=== PATIENT | male | born 1965 | race Caucasian/White ===

== ENCOUNTER 2017-07-27 20:06 | Emergency (ER) | payer OTHER ==
[2017-07-27] MEDS: SODIUM CHLORIDE 0.9% FLUSH 10 ML FLUSH IV FLUSH (21:33)
[2017-07-27] MEDS: SODIUM CHLOR 0.9% 1000 ML INJ 1,000 ML IV (21:33)
[2017-07-27] MEDS: OSELTAMIVIR PHOSPHATE 75 MG CAP PO (21:33)
[2017-07-27] MEDS: ONDANSETRON HCL 4 MG/2 ML VIAL IV PUSH (21:33)
[2017-07-27 21:42] LABS: AUTOMATED NEUTROPHIL # 7.8 TH/MM3 (1.8-7.7); BASOPHIL % 0.2 % (0.0-2.0); EOSINOPHIL # 0.1 TH/MM3 (0-0.4); EOSINOPHIL % 0.8 % (0.0-4.0); HEMATOCRIT 45.1 % (39.0-51.0); HEMO FLAGS DIFF FINAL; HEMOGLOBIN 14.6 GM/DL (13.0-17.0); LYMPH % 10.8 % (9.0-44.0); MEAN CELL VOLUME 85.8 FL (80.0-100.0); MEAN CORPUSCULAR HEMOGLOBIN 27.7 PG (27.0-34.0); MEAN CORPUSCULAR HGB CONC 32.3 % (32.0-36.0); MEAN PLATELET VOLUME 6.9 FL (7.0-11.0); MONO % 6.7 % (0.0-8.0); MONOCYTE # 0.6 TH/MM3 (0-0.9); NEUT % 81.5 % (16.0-70.0); PLATELET COUNT 294 TH/MM3 (150-450); RED BLOOD COUNT 5.26 MIL/MM3 (4.50-5.90); RED CELL DISTRIBUTION WIDTH 12.9 % (11.6-17.2); WHITE BLOOD COUNT 9.5 TH/MM3 (4.0-11.0)
[2017-07-27] MEDS: RESP: ALBUTEROL 2.5 MG/3 ML NEB (SCH) INH (21:43)
[2017-07-27 21:49] LABS: CHLORIDE 103 MEQ/L (98-107); POTASSIUM 3.9 MEQ/L (3.5-5.1); SODIUM (NA) 138 MEQ/L (136-145)
[2017-07-27 21:52] LABS: CALCIUM 8.5 MG/DL (8.5-10.1)
[2017-07-27 21:53] LABS: ALBUMIN 3.8 GM/DL (3.4-5.0); ANION GAP 6 MEQ/L (5-15); BICARBONATE 29.2 MEQ/L (21.0-32.0); BLOOD UREA NITROGEN 19 MG/DL (7-18); GLUCOSE,RANDOM 133 MG/DL (74-106)
[2017-07-27 21:55] LABS: APTT (PATIENT) 28.9 SEC (24.3-30.1); INTERNATIONAL NORMALIZED RATIO 1.1 RATIO; PROTHROMBIN TIME - PATIENT 10.7 SEC (9.8-11.6)
[2017-07-27 21:56] LABS: ALT (GPT) 46 U/L (12-78); AST (GOT) 30 U/L (15-37); GLOMERULAR FILTRATION RATE 70 ML/MIN (>89)
[2017-07-27 21:58] LABS: TOTAL BILIRUBIN ADULT 0.4 MG/DL (0.2-1.0); TOTAL PROTEIN 7.7 GM/DL (6.4-8.2)
[2017-07-27 21:59] LABS: ALKALINE PHOSPHATASE 86 U/L (45-117)
== END 2017-07-27 23:17 | disposition home or self-care (01) ==
LOC: PHED 20:06
DX: J11.1 Influenza due to unidentified influenza virus with other respiratory manifestations (principal); R42 Dizziness and giddiness; I10 Essential (primary) hypertension; R94.31 Abnormal electrocardiogram [ECG] [EKG]; Z87.891 Personal history of nicotine dependence
CPT/HCPCS: 71045; 80053; 85025; 85610; 85730; 87804; 87804-59; 93005; 94664; 96361; 96374; 99285-25

== ENCOUNTER 2017-07-31 15:25 | Emergency (ER) | payer OTHER ==
[~2017-07-31] VITALS: Ht 180.3 cm; Wt 122.5 kg
[~2017-07-31 15:25] MED LIST: OSEL75 PO; VENTAER INH; ZOFR4TAB3 SL
[2017-07-31 15:57] VITALS: BP 178/103; PULSE 89; RESP 18; TEMP 98.1; O2SAT 98
[2017-07-31 17:00] VITALS: BP 159/94; PULSE 85; RESP 16; O2SAT 97
[2017-07-31] MEDS ORDERED: PROMETHAZINE INJ 25 MG/ML VIAL IM ONE (17:00)
[2017-07-31] MEDS ORDERED: SODIUM CHLOR 0.9% 1000 ML INJ 1,000 ML IV ONE ×2 (17:00→19:00)
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
[2017-07-31 17:30] LABS: AUTOMATED NEUTROPHIL # 7.2 TH/MM3 (1.8-7.7); BASOPHIL # 0.2 TH/MM3 (0-0.2); BASOPHIL % 2.2 % (0.0-2.0); EOSINOPHIL % 0.4 % (0.0-4.0); HEMATOCRIT 46.7 % (39.0-51.0); HEMOGLOBIN 15.7 GM/DL (13.0-17.0); LYMPH % 18.9 % (9.0-44.0); LYMPHOCYTE # 1.9 TH/MM3 (1.0-4.8); MEAN CORPUSCULAR HGB CONC 33.7 % (32.0-36.0); MEAN PLATELET VOLUME 6.7 FL (7.0-11.0); MONO % 6.2 % (0.0-8.0); MONOCYTE # 0.6 TH/MM3 (0-0.9); NEUT % 72.3 % (16.0-70.0); PLATELET COUNT 386 TH/MM3 (150-450); RED BLOOD COUNT 5.43 MIL/MM3 (4.50-5.90); WHITE BLOOD COUNT 9.9 TH/MM3 (4.0-11.0)
[2017-07-31] MEDS ORDERED: ZITHTAB PO (17:45)
[2017-07-31 17:49] LABS: CALCIUM 9.4 MG/DL (8.5-10.1)
[2017-07-31 17:50] LABS: BICARBONATE 28.3 MEQ/L (21.0-32.0)
[2017-07-31 17:53] LABS: CREATININE 1.2 MG/DL (0.60-1.30)
[2017-07-31 18:15] VITALS: BP 168/92; PULSE 90; RESP 16; O2SAT 96
[2017-07-31 19:13] VITALS: BP 157/96; PULSE 94; RESP 18; O2SAT 98
--- NOTE | 2017-07-31 19:44 | RADRPT ---
EXAM DATE/TIME: 07/31/2017 19:19 [facility] COMPARISON: No previous studies available for comparison. INDICATIONS : Nausea, vomitingm and dizziness for 5 days RADIATION DOSE: 58.52 CTDIvol (mGy) MEDICAL HISTORY : Hypertension. SURGICAL HISTORY : None. ENCOUNTER: Initial ACUITY: 4 - 6 days PAIN SCALE: 6/10 LOCATION: Bilateral cranial TECHNIQUE: Multiple contiguous axial images were obtained of the head. Using automated exposure control and adj ustment of the mA and/or kV according to patient size, radiation dose was kept as low as reasonably a chievable to obtain optimal diagnostic quality images. DICOM format image data is available electro nically for review and comparison. FINDINGS: CEREBRUM: The ventricles are normal for age. No evidence of midline shift, mass lesion, hemorrhage or acute in farction. No extra-axial fluid collections are seen. POSTERIOR FOSSA: The cerebellum and brainstem are intact. The 4th ventricle is midline. The cerebellopontine angle i s unremarkable. EXTRACRANIAL: The visualized portion of the orbits is intact. SKULL: The calvaria is intact. No evidence of skull fracture. CONCLUSION: 1. No acute intracranial abnormalities. Joo Dang MD on July 31, 2017 at 19:40 Board Certified Radiologist. This report was verified electronically.
[2017-07-31 20:21] VITALS: BP_SYST 151; BP_SYST 152; BP_SYST 156; BP_DIAS 100; BP_DIAS 87; BP_DIAS 89; RESP 16
[2017-07-31] MEDS ORDERED: PROM25TA10 PO (20:24)
--- NOTE | 2017-07-31 20:24 | PD ---
Physical Exam Date Seen by Provider: Jul 31, 2017 Time Seen by Provider: 19:00 Narrative Patient signed out to me at [address] Jorge, please see his notes for further details. Patient apparently has been having dizziness for several days , seen several days ago for similar symptoms, nauseous and intermittently vomiting, and came in for dizziness. No focal deficits identified on initial evaluation. Vital signs are stable. EKG shows NSR, no ST elevation or depression, and no arrhythmias. No significant T-wave inversions. Laboratory Tests Test 07/31/17 17:15 Mean Platelet Volume 6.7 FL (7.0-11.0) Neutrophils (%) (Auto) 72.3 % (16.0-70.0) Basophils (%) (Auto) 2.2 % (0.0-2.0) Blood Urea Nitrogen 19 MG/DL (7-18) Estimat Glomerular Filtration Rate 64 ML/MIN (>89) Last [address] 07/31/17 0000 Signed Impressions: Service Date/Time: Monday, July 31, 2017 19:19 - CONCLUSION: 1. No acute intracranial abnormalities. Joo Dang MD Lab work did not indicate significant metabolic issues or significant dehydration. CT of the brain was negative for any signs of acute intracranial processes. EKG did not show significant dysrhythmias. Patient has no significant focal neurological deficits on my evaluation is given IV fluids and was ambulatory in the ER without issues. Eating ice. He had no further vomiting episodes in the ER. Romberg testing was normal. At this point, I suspect he may have some underlying orthostasis likely secondary to mild dehydration. Planning to release with follow-up to primary care physician. Return for worsening in symptoms as necessary. Patient apparently was responding better to Phenergan and Zofran and I will give him Phenergan. Data Data Last Documented VS Vital Signs Date Time Temp Pulse Resp B/P (MAP) Pulse Ox O2 Delivery O2 Flow Rate FiO2 07/31/17 19:13 94 18 157/96 (116) 98 Room Air 07/31/17 15:57 98.1 Orders Orders Iv Access Insert/Monitor (07/31/17 16:57) Promethazine Inj (Phenergan Inj) (07/31/17 17:00) Sodium Chlor 0.9% 1000 Ml Inj (Ns 1000 M (07/31/17 17:00) Complete Blood Count With Diff (07/31/17 16:57) Basic Metabolic Panel (Bmp) (07/31/17 16:57) Ct Brain W/O Iv Contrast(Rout) (07/31/17 ) Electrocardiogram (07/31/17 ) Sodium Chlor 0.9% 1000 Ml Inj (Ns 1000 M (07/31/17 19:00) Orthostatic Vital Signs (07/31/17 18:53) Ed Discharge Order (07/31/17 20:20) Labs Laboratory Tests Test 07/31/17 17:15 White Blood Count 9.9 TH/MM3 Red Blood Count 5.43 MIL/MM3 Hemoglobin 15.7 GM/DL Hematocrit 46.7 % Mean Corpuscular Volume 86.0 FL Mean Corpuscular Hemoglobin 29.0 PG Mean Corpuscular Hemoglobin Concent 33.7 % Red Cell Distribution Width 13.0 % Platelet Count 386 TH/MM3 Mean Platelet Volume 6.7 FL Neutrophils (%) (Auto) 72.3 % Lymphocytes (%) (Auto) 18.9 % Monocytes (%) (Auto) 6.2 % Eosinophils (%) (Auto) 0.4 % Basophils (%) (Auto) 2.2 % Neutrophils # (Auto) 7.2 TH/MM3 Lymphocytes # (Auto) 1.9 TH/MM3 Monocytes # (Auto) 0.6 TH/MM3 Eosinophils # (Auto) 0.0 TH/MM3 Basophils # (Auto) 0.2 TH/MM3 CBC Comment DIFF FINAL Differential Comment Blood Urea Nitrogen 19 MG/DL Creatinine 1.20 MG/DL Random Glucose 102 MG/DL Calcium Level 9.4 MG/DL Sodium Level 138 MEQ/L Potassium Level 3.8 MEQ/L Chloride Level 102 MEQ/L Carbon Dioxide Level 28.3 MEQ/L Anion Gap 8 MEQ/L Estimat Glomerular Filtration Rate 64 ML/MIN [facility] Medical Record Reviewed: Yes Supervised Visit with RADHA: No Diagnosis Primary Impression: Nausea and vomiting Qualified Codes: R11.2 - Nausea with vomiting, unspecified Additional Impression: Lightheadedness Med/Other Pt SpecificInfo: Prescription(s) given Scripts Promethazine (Phenergan) 25 Mg Tablet 25 MG PO Q6H Y for NAUSEA OR VOMITING, #7 TAB 0 Refills Prov: Srikanth Severino MD 07/31/17 Disposition: 01 DISCHARGE HOME Condition: Stable Srikanth Severino MD Jul 31, 2017 20:24
--- NOTE | 2017-08-01 13:26 | EKG ---
Date Performed: 07/31/2017 Time Performed: 19:39:25 PTAGE: 51 years EKG: Sinus rhythm BORDERLINE LEFT AXIS DEVIATION MODERATE INTRAVENTRICULAR CONDUCTION DELAY Since the prior tracing, t here has been no significant change BORDERLINE ECG PREVIOUS TRACING : 07/27/2017 21.30 DOCTOR: Paolo Brown Interpretating Date/Time 08/01/2017 13:24:22
== END 2017-07-31 20:45 | disposition home or self-care (01) ==
LOC: PHED 15:25
DX: R11.2 Nausea with vomiting, unspecified (principal); R42 Dizziness and giddiness; I10 Essential (primary) hypertension; Z88.8 Allergy status to other drugs, medicaments and biological substances; Z79.899 Other long term (current) drug therapy
CPT/HCPCS: 70450; 80048; 85025; 93005; 96360; 96361; 96372; 99285; J2550; J7030